=== PATIENT | male | born 1965 ===

== ENCOUNTER 2022-01-11 10:44 | Outpatient (CLI) | payer OTHER | END 2022-01-11 10:45 | disposition home or self-care (01) | LOC: TOM 10:44 | PROVIDERS: ATTEND Otolaryngology Otolaryngology/Facial Plastic Surgery | DX: S02.2XXA Fracture of nasal bones, initial encounter for closed fracture (principal) ==

== ENCOUNTER 2022-04-11 07:15 | Outpatient (CLI) | payer OTHER | END 2022-04-11 07:40 | disposition home or self-care (01) | LOC: LAB 07:15 | PROVIDERS: ATTEND Internal Medicine Hematology & Oncology | DX: D64.9 Anemia, unspecified (principal); R74.01 Elevation of levels of liver transaminase levels; E78.00 Pure hypercholesterolemia, unspecified; I10 Essential (primary) hypertension; N60.99 Unspecified benign mammary dysplasia of unspecified breast; N39.0 Urinary tract infection, site not specified; E03.8 Other specified hypothyroidism ==

== ENCOUNTER 2022-04-12 09:05 | Outpatient (CLI) | payer OTHER | END 2022-04-12 11:04 | disposition home or self-care (01) | LOC: SONOGRAMA 09:05 | PROVIDERS: ATTEND Physical Medicine & Rehabilitation | DX: M76.62 Achilles tendinitis, left leg (principal) ==